=== PATIENT | male | born 1950 | race Caucasian/White ===

== ENCOUNTER 2020-08-02 06:59 | Outpatient (CLI) | payer OTHER ==
[2020-08-03 15:04] LABS: SARS-CoV-2 MS2 Positive; SARS-CoV-2 N Gene Negative; SARS-CoV-2 S Gene Negative; SARS-CoV-2 by NAA Not Detected (NotDetected); SARS-CoV-2 orf1ab Negative
== END 2020-08-02 07:00 | disposition home or self-care (01) ==
LOC: LABBT 06:59
PROVIDERS: ATTEND Ophthalmology Retina Specialist
DX: H35.372 Puckering of macula, left eye (principal); Z20.828 Contact with and (suspected) exposure to other viral communicable diseases
CPT/HCPCS: 87635; U0003

== ENCOUNTER 2020-08-07 06:47 | Day surgery (SDC) | payer OTHER ==
[2020-08-06 13:20] VITALS: BMI 29.0
[~2020-08-07 06:47] MED LIST: EPINEPHrine 0.3 MG in Ophthalmic Irrigation Solution 500 ML IRR SCH; Fentanyl 100 MCG/2 ML VIAL ONE; Midazolam HCl 2 mg/2 ml Vial ONE
[2020-08-07] MEDS ORDERED: Phenylephrine 2.5% Ophth Soln 5 ML BOT ONE (07:24)
[2020-08-07] MEDS ORDERED: Cyclopentolate 1% Opth Drop 2 ML BOT ONE (07:24)
[2020-08-07] MEDS ORDERED: Indocyanine Green 25 MG/10 ML VIAL ONE (11:34)
[2020-08-07] MEDS ORDERED: CEFAZOLIN 1 GM VIAL ONE (11:34)
[2020-08-07] MEDS ORDERED: Maxitrol 0.1% Opth Oint 3.5 GM TUBE ONE (11:34)
[2020-08-07] MEDS ORDERED: PROPOFOL 200 MG/20 ML VIAL ONE (11:34)
[2020-08-07] MEDS ORDERED: Lidocaine 4% PF 5 ML AMP ONE (11:34)
[2020-08-07] MEDS ORDERED: Bupivacaine PF 0.75% SDV 10 ML ONE (11:34)
[2020-08-07] MEDS ORDERED: Triamcinolone 40 MG/ML VIAL ONE (11:34)
[2020-08-07] MEDS ORDERED: Lidocaine 1% PF 5 ML VIAL ONE (11:34)
--- NOTE | 2020-08-07 12:12 | OP ---
DATE OF PROCEDURE: 08/07/2020 PRINCIPAL PREOPERATIVE DIAGNOSIS: Epiretinal membrane, left eye. POSTOPERATIVE DIAGNOSIS: Epiretinal membrane, left eye. PROCEDURES PERFORMED: 1. 25-gauge pars plana vitrectomy, left eye. 2. Epiretinal membrane/internal limiting membrane removal, left eye. ESTIMATED BLOOD LOSS: None. SPECIMENS REMOVED: None. COMPLICATIONS: None. ANESTHESIA: MAC with sub-Tenon's block. DESCRIPTION OF PROCEDURE: The patient was identified in the preoperative holding area, where the correct eye being the left eye was marked for surgery. The patient was taken to the operating room, where MAC anesthesia was induced. The left eye was prepped and draped in usual sterile ophthalmic fashion for surgery. A wire-clip lid speculum was placed. An inferonasal conjunctival peritomy was fashioned with Mildred scissors for administration of sub-Tenon's block. The block consisted of 1:1 ratio of 4% lidocaine and 0.75% Marcaine. A total of 5 mL was administered. A standard 25-gauge pars plana vitrectomy platform was fashioned with trocars placed approximately 4-mm from the limbus. The infusion was noted to be within the vitreous cavity prior to being turned on to infusion pressure of 30 mmHg. The light pipe and microvitrector were introduced in the eye under visualization of the BIOM viewing system. A careful core and peripheral shave vitrectomy were performed. Following vitrectomy, ICG dye was used to stain the internal limiting membrane. Using the Triston ILM forceps, the epiretinal membrane/internal limiting membrane complex was gently removed in a circumferential fashion about the fovea. The peel extended approximately 2 disk diameters in radius circumferentially. Following peeling, the microvitrector was reinserted in the eye to remove any residual vitreous debris. A 360-degree scleral depressed exam of periphery was performed, which revealed no defects. These cannulas were sequentially removed. All sclerotomies were noted to be watertight. Subconjunctival Ancef and Kenalog were injected. The wire-clip lid speculum was removed followed by application of TobraDex ophthalmic ointment and a light patch and shield. The patient tolerated the procedure well and was taken to outpatient recovery area in good condition. Job ID: [id number]
== END 2020-08-07 11:19 | disposition home or self-care (01) ==
LOC: SDC 06:47
PROVIDERS: ATTEND Ophthalmology Retina Specialist
PROC: 08NF3ZZ Release Left Retina, Percutaneous Approach (ICD-10-PCS; principal; 2020-08-07)
PROC: 08T53ZZ Resection of Left Vitreous, Percutaneous Approach (ICD-10-PCS; principal; 2020-08-07)
DX: H35.372 Puckering of macula, left eye (principal); Z79.899 Other long term (current) drug therapy; Z88.6 Allergy status to analgesic agent
CPT/HCPCS: J0171; J0690; J2001; J2250; J2704; J3010; J3301; J3490

== ENCOUNTER 2022-03-23 08:26 | Emergency (ER) | payer MEDICARE, SELFPAY ==
[2022-03-23 09:23] LABS: #Monocytes 0.5 thou/uL (0.11-0.59); #Neutrophils 10.3 thou/uL (1.40-6.50); %Basophils 0.3 % (0.0-1.0); %Eosinophils 0.3 % (0.0-10.0); %Lymphocytes 8.1 % (21.0-51.0); %Monocytes 4.2 % (0.0-10.0); %Neutrophils 87.1 % (42.0-75.0); Hemoglobin 15.3 g/dL (14.0-18.0); Mean Corpuscular HGB CONC 32.5 g/dL (32.0-36.0); Mean Corpuscular Hemoglobin 32.6 pg (27.0-31.0); Mean Platelet Volume 6.6 fL (7.4-10.4); Platelet Count 232 thou/uL (130-400); RBC Distribution Width 11.2 % (11.5-14.5); White Blood Cell (WBC) Count 11.8 thou/uL (4.8-10.8)
[2022-03-23 09:42] LABS: ALT (SGPT) 11 U/L (8-55); AST (SGOT) 14 U/L (5-34); Albumin 4.2 g/dL (3.4-4.8); Alkaline Phosphatase 98 U/L (40-110); Anion Gap 13 mmol/L (10-20); BUN (Urea Nitrogen) 20 mg/dL (8.4-25.7); Calc. Creatinine Clearance 0 mL/min (70-130); Calcium 10.1 mg/dL (7.8-10.44); Carbon Dioxide 24 mmol/L (23-31); Chloride 106 mmol/L (98-107); Globulin 2.6 g/dL (2.4-3.5); Glucose 137 mg/dL (80-115); Lipase 51 U/L (8-78); Potassium 4.3 mmol/L (3.5-5.1); Protein, Total 6.8 g/dL (5.8-8.1); Sodium 139 mmol/L (136-145)
[2022-03-23] MEDS ORDERED: Ondansetron PF 4 MG/2 ML Vial ONE (10:36)
[2022-03-23 12:14] LABS: Bilirubin Negative (Negative); Blood, Urine Negative (Negative); Clarity Clear (Clear); Glucose, Urine (Dipstick) Normal (Negative); Ketone, Urine 10 mg/dL (Negative); Leukocyte Negative Leu/uL (Negative); Nitrite Negative (Negative); Protein, Urine (Dipstick) 10 mg/dL (Neg-Trace); Specific Gravity, Urine 1.031 (1.002-1.036); Urobilinogen Normal mg/dL (Less than 2)
[2022-03-23] MEDS ORDERED: Esmolol 2,500 MG/250 ML 250 ML ONE (13:32)
[2022-03-23] MEDS ORDERED: Iopamidol-370 76% 500 ML 1 ML ONE (13:37)
== END 2022-03-23 13:51 | disposition short-term general hospital (02) ==
LOC: ERS 08:26
DX: I71.00 Dissection of unspecified site of aorta (principal); I71.9 Aortic aneurysm of unspecified site, without rupture; Z79.899 Other long term (current) drug therapy
CPT/HCPCS: 36415; 71275; 74177; 80053; 81003; 83690; 84484; 85025; 93005; J2405; Q9967